=== PATIENT | female | born 1945 | race Caucasian/White ===

== ENCOUNTER 2022-09-11 02:18 | Inpatient (IN) | payer OTHER ==
[~2022-09-11] VITALS: Ht 172.7 cm; Wt 73.5 kg
--- NOTE | 2022-09-11 02:20 | NUR ---
KRISTEL from home for midnight Lt sided weakness with slurred speech,resolved then came back at 0130h. Patient is AAOX4, with facial drooping on left side. Able to make needs known. Answers questions. no drift noted on 4 extremities. Patient came with IV andrea on LEFT FA G18. Attached to monitor. Vitals checked.
--- NOTE | 2022-09-11 02:22 | NUR ---
called code stroke
--- NOTE | 2022-09-11 02:23 | NUR ---
BS OF 117mg/dl.
--- NOTE | 2022-09-11 02:25 | NUR ---
LEFT FOR CT VIA GURNEY UNDER ACLS PROTOCOL
--- NOTE | 2022-09-11 02:26 | NUR ---
UNABLE TO ATIVATE TELE MED REQUEST DUE TO TEMPORARY UNAVAILBLE INTERNET ACCESS. CALLED TELE MED AT [phone] MOYER
[2022-09-11] MEDS ORDERED: CT SWABBABLE VALVE TRANS SET 1 EA INFUS.SET MC ONE (02:42)
--- NOTE | 2022-09-11 02:53 | NUR ---
BACK FROM CT
--- NOTE | 2022-09-11 02:55 | NUR ---
Patient failed the swallowing eval. Dr Betancourt made aware
--- NOTE | 2022-09-11 02:55 | NUR ---
TELE NEURO ASSESSMENT IN PROCESS THROUGH RAPID ROOM DUE TO TWMPORARY LACK OF INTERNET ACCESS AT THE FACILITY. DR MOEYR IS ON VIDEO CHAT ASSESSING THE PATIENT ON MY PERSONAL CELL PHONE. DR HERRERA AT THE BED SIDE ASSISTING.
[2022-09-11 03:04] LABS: HEMATOCRIT 35 % (33-45); HEMOGLOBIN 11.4 g/dL (11.5-14.8); WHITE BLOOD COUNT (AUTO) 9.8 K/uL (4.3-11.0)
[2022-09-11 03:05] LABS: BASOPHILS % (AUTO) 0.2 % (0.0-2.0); EOSINOPHILS % (AUTO) 2.2 % (0.0-6.0); LYMPHOCYTES # (AUTO) 1.4 K/uL (0.8-4.8); LYMPHOCYTES % (AUTO) 14.3 % (20.0-44.0); MEAN CORPUSCULAR HGB CONC 33 g/dl (31.0-36.0); MEAN CORPUSCULAR VOLUME 100 fL (82-100); MONOCYTES # (AUTO) 0.7 K/uL (0.1-1.30); MONOCYTES % (AUTO) 7.6 % (2.0-12.0); NEUTROPHILS # (AUTO) 7.4 K/uL (1.8-8.9); NEUTROPHILS % (AUTO) 75.7 % (43.0-81.0); PLATELET COUNT (AUTO) 243 K/uL (150-450)
[2022-09-11 03:06] LABS: POTASSIUM 4.7 mmol/L (3.5-5.1); SODIUM SERUM 140 mmol/L (136-145)
[2022-09-11 03:07] LABS: BILIRUBIN,TOTAL 0.3 mg/dL (0.2-1.0); CALCIUM, SERUM 9.8 mg/dL (8.5-10.1); CARBON DIOXIDE 28 mmol/L (21-32); CHLORIDE 106 mmol/L (98-107); CREATININE 0.7 mg/dL (0.6-1.3); GLUCOSE 117 mg/dL (74-106); UREA NITROGEN, BLOOD 24 mg/dL (7-18)
[2022-09-11 03:08] LABS: ALANINE AMINOTRANSFERASE 24 U/L (12-78); ALBUMIN 3.6 g/dL (3.4-5.0); ALKALINE PHOSPHATASE 74 U/L (46-116); ASPARTATE AMINOTRANSFERASE 22 U/L (15-37); BILIRUBIN,DIRECT 0.1 mg/dL (0.0-0.2)
[2022-09-11 03:09] LABS: TOTAL PROTEIN, SERUM 7.8 g/dL (6.4-8.2)
--- NOTE | 2022-09-11 03:20 | NUR ---
Note undone in EDM - 09/11/22 at 0324 by COLBY KRISTEL from home for midnight Lt sided weakness with slurred speech,resolved then came back at 0130h. Patient is AAOX4, with facial drooping on left side. Able to make needs known. Answers questions. no drift noted on 4 extremities. Patient came with GRISELDA mendez on LEFT FA G18. Attached to monitor. Vitals checked.
[2022-09-11] MEDS ORDERED: ASPIRIN 300 MG/SUPP.RECT RC ONE ×2 (03:30→03:44)
--- NOTE | 2022-09-11 03:42 | NUR ---
URINE SPECIMEN SENT TO LAB
--- NOTE | 2022-09-11 04:04 | NUR ---
TO GIVE REPORT TO YOSSI MARTINEZ. WILL CALL AGAIN.
--- NOTE | 2022-09-11 04:14 | NUR ---
REPORT GIVEN TO RN NATALIE
[2022-09-11] MEDS ORDERED: MORPHINE SULFATE INJ 2 MG/ML DISP.SYRIN IV PRN (05:00)
[2022-09-11] MEDS ORDERED: hydrALAZINE HCL IV 20 MG VIAL IV PRN (05:00)
[2022-09-11] MEDS ORDERED: ACETAMINOPHEN 325 MG TABLET PO PRN (05:00)
[2022-09-11] MEDS ORDERED: ONDANSETRON HCL/PF 4 MG/2 ML VIAL IVP PRN (05:00)
--- NOTE | 2022-09-11 05:20 | NUR ---
0520 Admitted from ER 77 year old female via rney with Dx of CVA. Patient is awake and oriented x 4. Required max assist with transfer to bed. Admission care and skin assessment done. Still noted with mild left facial droop, mild left upper and lower extremities weakness. Speech slow but clear. On room air satting 98%. Noted with multiple open sores on bilateral lower extremities. Cleansed affected areas with NS and covered with dry dressing and wrapped in kerlix gauze. Incontinent of bowel and bladder. Requires max assist with ADLs. Vital signs taken and recorded. Stroke scale done and recorded. Needs attended. Call light placed within reach and instructed to call for assist.
--- NOTE | 2022-09-11 05:37 | NUR ---
TRANSFERRED PATIENT TO ROOM VIA ACLS PROTOCOL
[2022-09-11 06:00] VITALS: BP 148/69
[2022-09-11 07:12] LABS: THYROID STIMULATING HORMONE 13.642 uIU/mL (0.358-3.74)
[2022-09-11 08:00] VITALS: BP 143/68
--- NOTE | 2022-09-11 08:13 | NUR ---
ORTHOPEDIC SURGEON NOTE PATINT IN BED ALERT ORIENTED ON RA NO SOB NOTED AT THIS TIME, ON TELE MONITOR SR HR 62 WITH LT SIDE WEAKNESS ON NPO AT TIS TIME NO SOB NOTED, RT FA HL INTACT AND FLUSHED WELL , BED IN LOWEST AND LOCKED POSITION WILL MONITOR
--- NOTE | 2022-09-11 08:45 | NUR ---
WOUND CARE CONSULT: PT PRESENTS WITH BILATERAL LOWER LEG AND FOOT WOUNDS, PRESENT ON ADMISSION. DR MATHIS CALLED FOR DPM CONSULT. DISCUSSED SKIN PROTECTION WITH NURSING STAFF. MD IN AGREEMENT WITH PLAN OF CARE. PT IS INCONTINENT.
[2022-09-11] MEDS: HEPARIN SODIUM, PORCINE 5000 UNITS/1 ML VIAL SQ SCH ×2 (08:47→20:13)
[2022-09-11] MEDS ORDERED: Z GUARD REMEDY 4 OZ OINT TP PRN (09:00)
[2022-09-11] MEDS ORDERED: ATOR10TA PO (09:46)
[2022-09-11] MEDS ORDERED: LEVO100T9 PO (09:46)
--- NOTE | 2022-09-11 10:00 | NUR ---
teletype operator note bibiana finnegan applued for urine incontinence of urine , stroke teaching provided abd explained s\s of stoke ,risk factors and educate about meds and fu with doctor and taking her medication and how activate emergency for stoke all of this understands, call light within reach will monitor
[2022-09-11] MEDS: ASPIRIN EC 81 MG TABLET.DR PO SCH (10:06)
[2022-09-11] MEDS: Z GUARD REMEDY 4 OZ OINT TP SCH (10:07)
--- NOTE | 2022-09-11 10:08 | NUR ---
telecommunication systems designer note seen by wound care nurse and pt ,still with weakens lt side
--- NOTE | 2022-09-11 10:13 | NUR ---
telecom specialist note passed swallow eval at bedside awaiting foe st eval will f\u
[2022-09-11] MEDS ORDERED: MULT-1168 PO (10:15)
--- NOTE | 2022-09-11 11:08 | NUR ---
telephone service adviser note social service agency director at [facility] depression screening done Addendum: 09/11/22 at 1122 by PRINCESS WELLER RN DVT PUMPS APPLIED TO BOTH LEGS
--- NOTE | 2022-09-11 11:42 | NUR ---
ENVIRONMENTAL INTERN NOTE ST WILL COME LATTER ON, SPOKE WITH MARIANO PT DEPARTMENT
--- NOTE | 2022-09-11 11:56 | NUR ---
SCROLL SAW OPERATOR NOTE REPORT GIVEN TO RON
[2022-09-11 12:00] VITALS: BP 139/69
--- NOTE | 2022-09-11 12:00 | NUR ---
RN NOTE RECEIVED REPORT FROM PRINCESS SY FOR [facility]
--- NOTE | 2022-09-11 13:32 | NUR ---
rn note pt left for MRI
--- NOTE | 2022-09-11 13:53 | NUR ---
rn note pt returned from MRI
--- NOTE | 2022-09-11 14:11 | NUR ---
SS Consult: SS consult requested for TIA. The pt. is a 77-year-old White female who was admitted to [facility] due to possibleTIA. SW met with pt. bedside. The pt. was alert & oriented x 4 and makes poor eye contact. The pt. appears well-groomed and is very drowsy/tired. Pt. denies SI/HI and denies hallucinations. The pt. has euthymic mood & affect. Pt. stated that he lives at home [[id number] [facility] [address]] with her , Morgan Patel tel: [phone] and gave SW verbal consent to call her to gather collateral information. SW completed post stroke depression scale with pt. and pt. score was 2 and no psych consult needed. Pt.s nurse was at bedside and was made aware. RODERICK called the pt.s , Morgan Patel tel: [phone] to gather collateral information. Per pt.s , the pt. has Hx. of Dementia and aphasia and is incontinent. Per , the pt. has no children and no caregiver at this time. states he takes care of her. SW also provided empowerment after stroke educational material and pt. accepted it. Pt. denies drug or alcohol use. Pt. denies any Hx. of mental illness or medication. Pt. stated that her support system includes his and family. Per , pt. receives SSI. DC Plan: Pt.s Morgan Patel tel: [phone] stated that when pt. is ready for discharge, he would like for pt. return to home [[id number] [facility] [address] SW encouraged to hire a caregiver as he is elderly as well and to ensure pt.s properly taken care. SW provided stroke empowerment resources at bedside as well as Senior resources and pamphlets for caregiving agencies & memory care facility: ANGELES Hernandez caregiving agency tel:[phone] [facility] Homecare tel: [phone] [facility] care tel: [phone] [facility] tel: [phone] [facility] tel [phone] ABUSE PREVENTION: ELDER ABUSE HOTLINE (12/01) ADULT PROTECTIVE SERVICES HOTLINE LONG-TERM CARE [facility] Region AREA ON AGING (HOTLINE) ADULT DAY HEALTH CARE CARE CENTERS: Private pay or Medi-kevin funded adult day care [place] [facility] , [facility] Services , [facility] Adult [facility] Center , [facility] Adult Day Health Care , [facility] Adult Day Health Care , [facility] Adult [facility] Center , [facility] , [facility] , [place] ALZHEIMERS DISEASE/DEMENTIA: Alzheimers Association Helpline [facility] www.alz.org/[facility] Department of Aging www.lacity.org Family Caregiver [place] www.caregiver.org [place] Caregiver Resources Center/Family Support www.[facility].org CANCER RESOURCES: [place] Cancer Society www.cancer.org Cancer Support Community www.CancerSupportVvsb.org: CancerCare www.cancercare.org [facility] Cancer Support Center www.spark.org COMMUNITY HEALTH ASSOCIATIONS: AARP www.aarp.org ALS Association (ask for Lurdes) www.als.org Indonesian Diabetes Association www.diabetes.org Indonesian Heart Association www.heart.org Indonesian Lung Association www.lungusa.org Indonesian Parkinson Disease Association www.apdaparkinson.org Indonesian Mcgill , www.redcross.org Arthritis Foundation www.arthritis.org Crohns & Colitis Foundation of Indonesian www.ccfa.org/chapters/losangeles National Multiple Sclerosis Society www.nationalmssociety.org Myasthenia Gravis Foundation www.myasthenia-ca.org National Stroke Association www.stroke.org CONSERVATORSHIP & GUARDIANSHIP: AARP Fifi Ramirez Legal Services Center for Health Care Rights [facility] Information and Referral Fiberglass Container Winding Operator [place] [facility]: [facility] Referral Service [facility] Legal Services Office of the Public Guardian [place] EYESIGHT DISORDER RESOURCES: Indonesian Macular Degeneration Foundation [facility] www.brapromedica toledo hospitalinstitute.org GRIEF AND BEREAVEMENT RESOURCES: The Gathering Place , [facility] THE GRAFF Connection , [facility] Bereavement Center , [place] HEARING DISORDER RESOURCES: [place] Telephone Access Program Deaf and Disabled Telecommunications Program www.ddtp.cpuc.ca.gov HearRx Hearing Centers ([place]) Better Hearing Systems , [place] GLAD ([facility] Agency on Deafness) V/ TTY; Microarray Specialist , [facility] Hearing [place] [facility] -low income hearing aid assistance www.starkeyhearingfoundation.org [place] [facility] Armando HELP AT HOME CAREGIVER SUPPORT: In Home Support Services (Must have Medi-Kevin to be eligible) *Ask for a list of agencies that provide services to assist with care in the home. Local Senior Centers also have listings of care providers. HOME SAFETY MODIFICATIONS AND EQUIPMENT: Senior centers have additional referrals. [place] Insight Guru and Aryaka Networks Dept. Handyworker Program (low income) or Visit http://hcidla.[facility].org/ouf-qaecju-ea for more information National Seating and Mobility and/or ; Forever Active www.foreveractivemed.Prehash Ltd Stay Home Safe www.Stayhomesafe.com LIFE ALERT RESPONSE SYSTEM: NeuroNascent Lifeline Services [phone] www. LifeKeyMe Life Alert [phone] www.lifeHearsay.itrt.Prehash Ltd Life Station [phone] www.ZAPRation.Prehash Ltd Safe Return [phone] www.alz.or/safereturn Cell Phones for Seniors www.globalscholar.com MEALS AND FOOD PROGRAMS: Dora Meals on Wheels [phone] [place] Meals on Wheels [phone] [facility] [phone] [place] to the Homebound [phone] [place] to the Homebound [phone] Health System to the Homebound [phone] [facility] to the Homebound [phone] Rey Glass [phone] Donal Vikash [place] [phone] ONE Generation [phone] [facility] [phone] [facility] [phone] Meals on Wheels [phone] For all ages: $6.85/ meal w side. Delivered M-F from 10 am-1pm. Application and payment is done over the phone. Frozen meals available for weekends. Emergency Food [facility] [phone] [facility] Assistant Field Hockey Coach [phone] [facility] [phone] Cherie Trinidad Outreach- Brown bag lunches [phone] [facility] [phone] MEAL/GROCERY DELIVERY PROGRAMS: Ayde [facility] Gourmet Meals [phone]- [facility] [phone]- [facility] Magic Kitchen [phone] Moms Meals [phone] (ask Harris for Discount Select grocery stores may provide delivery. MEDICAL INSURANCE SUPPORT SERVICES: Center for Health Care Rights [phone] Health Insurance Counseling/Advocacy Programs (HICAP)-Must have Medicare. Offers counseling for Medi-Kevin eligibility [phone] Department of Public Assistant Field Hockey Coach [phone] www.[facility].ca.gov Medicare [phone] www.socialsecurity.org Social Security [phone] SENIOR ACTIVITY PROGRAMS: *Contact a local senior center, adult school, recreation facility or community college for education, fitness, recreation, and social programs. Aquatic Therapy and Adapted Exercise programs through [facility] [phone] Encore at [facility] [phone] www.[facility]/encore U- Senior Friends [phone] [place] Senior Programs [phone] www.oasisnet.org Suddenly 65 www.vllbkoqu22.com SENIOR CENTERS: [facility] [phone] [facility] [phone] [facility] [phone] [facility] Hospital[facility] [phone] [facility] [phone] [facility] [phone] [facility] [phone] [facility] [phone] Shelley Baltazar [facility] [phone] [facility] [phone] [facility] [phone] The [facility] [phone] [facility] [phone] TRANSPORTATION: Local [facility] may have applications for transportation programs and additional resources. ACCESS Services [phone] Transportation for seniors and disabled persons 7 days a week requiring 254 hr. advance reservation. Must apply and register for program jimmie eligible. UIEvolution [phone] or [phone] Transportation for seniors and persons with ADA card/metro disabled card in the [facility]. M-F only. Must register for services. ONE GENERATION [phone] Serves 65 years + in conjunction with I & Combinee program. Must be registered with both programs. A to B Transport [phone] Provides wheelchair/gurney van service. Adult Medical Transport [phone] Accepts [facility] with prior authorization. Care Van [phone] Provides wheelchair Transport. [facility] Wide Transportation [phone] Provides gurney service [facility]le [facility] [phone] Gurney Transport. [facility] Town Transportation [phone] wheelchair & gurney transport [facility] Transportation [phone] wheelchair & gurney transport [place] Non-Emergency Transport [phone] wheelchair & gurney transport [facility] Living [place] [phone] Short Term Transportation primarily for adults with disabilities on social security income. Nominal fee may apply and a reservation is required. [place] Sub Systems [phone] or [phone] LP Amina [phone] [place] [address] Services -[phone] For additional programs & services VETERANS RESOURCES: Submissions for Aid and Attendance should be done directly to Federal VA office locatd at : [address] [facility] [phone] National Caregiver Support Line [phone] Kevin [facility] Veterans Services Field Office [phone] [place] Department of Affairs [phone] Pension Information [phone]
[2022-09-11 16:00] VITALS: BP 133/67
--- NOTE | 2022-09-11 16:24 | NUR ---
RN NOTE ROUNDS MADE WITH RR BARIATRIC NURSE. PREVIOUS 1200 NIHSS SCORE 5. DID ANOTHER NIHSS STROKE SCALE INCREASED TO NIHSS 10. INITIATED CODE STROKE. LAST KNOWN WELL TIME 09/11 0130 AM ED ARRIVAL 09/10 CODE STROKE ACTIVATED 1624 TELE NEUROLOGY ACTIVIATED [address] RESULTED [address] SCAN NIHSS SCORE 10 BLOOD SUGAR 97 LAB EXTRACTION 09/11 1632 RR BARIATRIC NURSE PRESENT AT BEDSIDE. ICU EXTRACTIONS TECHNICIAN AT BEDSIDE NOTIFIED, EXTRACTIONS TECHNICIAN NOTITIFED, NURSING LMSW TELE NEUROLOGIST RECOMMENDED PT BE ON PLAVIX Addendum: 09/11/22 at 1958 by RON PEREZ RN PER TELE NEUROLOGIST NIHSS SCORE 4
[2022-09-11 16:43] LABS: BASOPHILS % (AUTO) 0.3 % (0.0-2.0); EOSINOPHILS % (AUTO) 2.2 % (0.0-6.0); HEMATOCRIT 34 % (33-45); LYMPHOCYTES # (AUTO) 1.2 K/uL (0.8-4.8); LYMPHOCYTES % (AUTO) 15.6 % (20.0-44.0); MEAN CORPUSCULAR HGB CONC 33 g/dl (31.0-36.0); MEAN CORPUSCULAR VOLUME 100 fL (82-100); MONOCYTES # (AUTO) 0.6 K/uL (0.1-1.30); MONOCYTES % (AUTO) 8.5 % (2.0-12.0); NEUTROPHILS # (AUTO) 5.5 K/uL (1.8-8.9); NEUTROPHILS % (AUTO) 73.4 % (43.0-81.0); PLATELET COUNT (AUTO) 221 K/uL (150-450); RED BLOOD CELL COUNT(AUTO) 3.36 MIL/uL (4.0-5.2); WHITE BLOOD COUNT (AUTO) 7.5 K/uL (4.3-11.0)
[2022-09-11 16:58] LABS: CALCIUM, SERUM 8.9 mg/dL (8.5-10.1); CREATININE 0.6 mg/dL (0.6-1.3); POTASSIUM 4.3 mmol/L (3.5-5.1)
[2022-09-11] MEDS ORDERED: CLOPIDOGREL BISULFATE 300 MG TABLET PO ONE (17:00)
[2022-09-11 17:13] LABS: ALBUMIN 3.3 g/dL (3.4-5.0); BILIRUBIN,TOTAL 0.5 mg/dL (0.2-1.0); TOTAL PROTEIN, SERUM 7.3 g/dL (6.4-8.2)
[2022-09-11] MEDS ORDERED: BLOOD SUGAR DIAGNOSTIC 1 EACH STRIP IN SCH ×3 (17:30→18:00)
[2022-09-11 17:36] LABS: THYROID STIMULATING HORMONE 9.158 uIU/mL (0.358-3.74)
[2022-09-11 17:51] VITALS: BP 133/67
[2022-09-11] MEDS: BLOOD SUGAR DIAGNOSTIC 1 EACH STRIP IN SCH ×2 (18:07→22:17)
--- NOTE | 2022-09-11 18:15 | NUR ---
RN NOTE NOTIFIED DR. JAMA THAT PT HAS 1 TIME DOSE OF PLAVIX TO GIVE NOW. AND PT IS ON HEPARIN ALREADY AND IF OKAY TO HOLD GIVE. RELAYED HGB 11.0, HCT 34, PLATELET 221. SAID OKAY TO GIVE PLAVIX.ORDER NOTED AND CARRIED OUT
--- NOTE | 2022-09-11 19:40 | NUR ---
RN CLOSING NOTE PT ALERT AND ORIENTED X3 PT IS ON TELE MONITOR. HIGH FOWLERS POSITION. PT ON ROOM AIR. . PT HAS R FOREARM AND LEFT 18 GAUGE. IV INTACT, PATENT AND FLUSHING WELL.PT ON ASPIRATION PRECAUTIONS. ALL SAFETY MEASURES IN PLACE. CALL LIGHT WITHIN REACH, BED LOCKED IN LOWEST POSITION. SIDE RAILS UP X2. BED ALARM ON.
[2022-09-11 20:00] VITALS: BP 126/65
[2022-09-11] MEDS: ATORVASTATIN 40 MG TABLET PO SCH (22:04)
[2022-09-11] MEDS ORDERED: MINERAL OIL/PETROLATUM,WHITE 120 GM JAR TP PRN (23:00)
[2022-09-12] VITALS: BP 130/65
[2022-09-12 04:00] VITALS: BP 141/60
[2022-09-12 07:09] LABS: BASOPHILS % (AUTO) 0.3 % (0.0-2.0); EOSINOPHILS % (AUTO) 2.2 % (0.0-6.0); HEMATOCRIT 34 % (33-45); HEMOGLOBIN 11.2 g/dL (11.5-14.8); LYMPHOCYTES # (AUTO) 1.2 K/uL (0.8-4.8); LYMPHOCYTES % (AUTO) 14.9 % (20.0-44.0); MEAN CORPUSCULAR HGB CONC 33 g/dl (31.0-36.0); MEAN CORPUSCULAR VOLUME 99 fL (82-100); MONOCYTES # (AUTO) 0.6 K/uL (0.1-1.30); MONOCYTES % (AUTO) 7.9 % (2.0-12.0); NEUTROPHILS # (AUTO) 5.9 K/uL (1.8-8.9); NEUTROPHILS % (AUTO) 74.7 % (43.0-81.0); PLATELET COUNT (AUTO) 220 K/uL (150-450); RED BLOOD CELL COUNT(AUTO) 3.41 MIL/uL (4.0-5.2); WHITE BLOOD COUNT (AUTO) 7.9 K/uL (4.3-11.0)
[2022-09-12 07:15] LABS: ALBUMIN 3.2 g/dL (3.4-5.0); BILIRUBIN,TOTAL 0.6 mg/dL (0.2-1.0); CALCIUM, SERUM 8.9 mg/dL (8.5-10.1); CREATININE 0.6 mg/dL (0.6-1.3); MAGNESIUM 2.3 mg/dL (1.8-2.4); PHOSPHORUS 3.6 mg/dL (2.5-4.9); POTASSIUM 3.5 mmol/L (3.5-5.1); TOTAL PROTEIN, SERUM 7.2 g/dL (6.4-8.2)
--- NOTE | 2022-09-12 07:30 | NUR ---
IUSS ACOUSTIC ANALYST AM NOTE PT IN BED, AAO X 3, ABLE TO EXPRESS SELF AND MAKE NEEDS KNOWN. ON ROOM AIR O2 SAT 97%, RESPIRATION UNLABORED. SR HR 75 ON MONITOR. DENIES PAIN OR CHEST DISCOMFORT. WITH RFA 18G AND LFA 20 G, BOTH FLUSHES WELL, BOTH SITE CLEAR. PUREED DIET WITH HONEY THICKENED LIQUID. FOR SWALLOW EVAL. SEE NURSING FLOWSHEET FOR SKIN ISSUES. ASPIRATION PRECAUTIONS. HOB UP X 3O DEG AT ALL TIMES. PUREWICK IN PLACE. WILL PERFORM PRESCRIBED WOUND TREATMENT IN A WHILE, TURN AND REPOSITION Q 2 HOURS. ALL SAFETY MEASURES IN PLACE. CALL LIGHT WITHIN REACH, BED LOCKED IN LOWEST POSITION. SIDE RAILS UP X2. BED ALARM ON. DISCUSSED POC, NEEDS FURTHER TEACHINGS. WILL CONT TO MONITOR NIHSS SCORE OF 3.
[2022-09-12 08:00] VITALS: BP 143/67
[2022-09-12] MEDS: BLOOD SUGAR DIAGNOSTIC 1 EACH STRIP IN SCH ×4 (08:22→22:00)
[2022-09-12] MEDS: HEPARIN SODIUM, PORCINE 5000 UNITS/1 ML VIAL SQ SCH ×2 (09:18→21:59)
[2022-09-12] MEDS: GENTAMICIN 0.1% OINT 15 GM TUBE TP SCH ×2 (09:18→16:40)
[2022-09-12] MEDS: ASPIRIN EC 81 MG TABLET.DR PO SCH (09:18)
[2022-09-12] MEDS: Z GUARD REMEDY 4 OZ OINT TP SCH (09:19)
--- NOTE | 2022-09-12 09:30 | NUR ---
RN NOTES DUE MEDS GIVEN
--- NOTE | 2022-09-12 09:50 | NUR ---
RN NOTES DR. JERRY MCNALLY AT BEDSIDE EARLIER. ASSESSED PATIENT. NO NEW ORDERS. SWALLOW EVAL DONE BY SANDY, RECOMMENDED VIDEO SWALLOW. NOTIFIED MD.
[2022-09-12] MEDS: CLOPIDOGREL BISULFATE 75 MG TABLET PO SCH (11:32)
[2022-09-12 12:00] VITALS: BP 145/62
--- NOTE | 2022-09-12 12:45 | NUR ---
RN NOTES DR. CONWAY AT BEDSIDE FOR BUBBLE TEST WITH ULTRASOUND
--- NOTE | 2022-09-12 13:00 | NUR ---
RN NOTES PATIENT SEEN BY PT AND OT. PT IS MAXIMUM ASSIST FOR MOBILITY, UNABLE TO TRANSFER. UNABLE TO AMBULATE. HIGH RISK FOR FALL
--- NOTE | 2022-09-12 13:45 | NUR ---
RN NOTES PATIENT AT BEDSIDE. SPOKE WITH KD CASE MANAGEMENT.
[2022-09-12 16:00] VITALS: BP 114/79
--- NOTE | 2022-09-12 18:39 | NUR ---
REDEYE GUNNER CLOSING NOTE PT IN BED, AAO X 3, ABLE TO EXPRESS SELF AND MAKE NEEDS KNOWN. ON ROOM AIR O2 SAT 97%, RESPIRATION UNLABORED. SR HR 78 WITH OCCASIONAL PVC ON MONITOR. DENIES PAIN OR CHEST DISCOMFORT. WITH RFA 18G AND LFA 18 G, BOTH FLUSHES WELL, BOTH SITE CLEAR. ASPIRATION PRECAUTIONS. HOB UP X 3O DEG AT ALL TIMES. PUREWICK IN PLACE. TURNED AND REPOSITIONED Q [address] ALL SAFETY MEASURES IN PLACE. CALL LIGHT WITHIN REACH, BED LOCKED IN LOWEST POSITION. SIDE RAILS UP X2. BED ALARM ON. WILL ENDORSE TO NEXT SHIFT FOR ERWIN. NIHSS SCORE OF 3.
--- NOTE | 2022-09-12 19:40 | NUR ---
PANTS BUSHELER OPENING NOTES RECEIVED PATIENT IN BED AWAKE, ALERT AND ORIENTED. AXO X 3-4. ABLE TO EXPRESS SELF AND MAKE NEEDS KNOWN. ON ROOM AIR, BREATHING EVEN AND UNLABORED, SATURATING @ 97%. 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 DENIES PAIN OR CHEST DISCOMFORT AT THIS TIME. IV ACCESS RFA #18G AND LFA #18G IN SALINE LOCK AND FLUSHING WELL. ASPIRATION PRECAUTIONS. HOB UP X 3O DEG AT ALL TIMES. PUREWICK IN PLACE DRAINING GET COLORED URINE. WILL MAINTAIN SAFETY MEASURES WITH BED IN LOWEST AND LOCKED POSITION. CALL LIGHT WITHIN REACH. SIDE RAILS UP X2. BED ALARM ON. WILL CONTINUE TO MONITOR THE PATIENT AND WILL CARRY OUT ACTIVE MD ORDERS.
[2022-09-12 20:58] VITALS: BP 125/72
[2022-09-12] MEDS: ATORVASTATIN 40 MG TABLET PO SCH (22:01)
[2022-09-13] VITALS: BP 139/69
[2022-09-13] MEDS ORDERED: IV NS 0.9% 1,000 ML IV SCH (01:30)
--- NOTE | 2022-09-13 02:30 | NUR ---
RN NOTES- NS PATIENT NOT EATING WELL AND RISK FOR ASPIRATION. INFORMED DR. SAHU AND ORDERED NS @ 70 MLS/HR. WILL CONTINUE TO MONITOR THE PATIENT.
--- NOTE | 2022-09-13 02:30 | NUR ---
RN NOTES- ACCUCHECK CANCELLED PATIENT VERBALIZED THAT SHE IS NOT DIABETIC AND REQUESTED TO CANCEL ACCUCHECK. INFORMED DR. SAHU AND AGREED TO CANCEL. ORDER CARRIED OUT.
[2022-09-13 04:00] VITALS: BP 135/84
--- NOTE | 2022-09-13 06:10 | NUR ---
YOSSI NBOTES- WOUND CARE AND DRESSING CHANGE DONE WOUND CARE AND DRESSING CHANGE DONE. CLEANSED BY NS AND APPLIED GENTAMYCIN TO THE WOUND AREA.
[2022-09-13 07:14] LABS: BASOPHILS % (AUTO) 0.3 % (0.0-2.0); EOSINOPHILS % (AUTO) 0.3 % (0.0-6.0); HEMATOCRIT 37 % (33-45); HEMOGLOBIN 12.3 g/dL (11.5-14.8); LYMPHOCYTES % (AUTO) 10.2 % (20.0-44.0); MEAN CORPUSCULAR HGB CONC 33 g/dl (31.0-36.0); MEAN CORPUSCULAR VOLUME 99 fL (82-100); MONOCYTES # (AUTO) 0.8 K/uL (0.1-1.30); NEUTROPHILS # (AUTO) 8.3 K/uL (1.8-8.9); NEUTROPHILS % (AUTO) 81.2 % (43.0-81.0); PLATELET COUNT (AUTO) 259 K/uL (150-450); RED BLOOD CELL COUNT(AUTO) 3.76 MIL/uL (4.0-5.2); WHITE BLOOD COUNT (AUTO) 10.2 K/uL (4.3-11.0)
--- NOTE | 2022-09-13 07:30 | NUR ---
PLANT HR MANAGER CLOSING NOTES PATIENT CURRENTLY SLEEPING. AWAKENS IN VERBAL STIMULI. A/O X 4. NO S/S PAIN NOTED AT THIS TIME. ON RA, BREATHING EVEN AND UNLABORED, NO DISTRESS OR SOB NOTED. HOB ELEVATED 30 DEGREES. IV ACCESS ON RFA #18G RUNNING NS @ 70ML/HR AND LFA #20G ON SALINE LOCK, FLUSHING WELL. PATIENT ON PUREWICK DRAINED GET COLORED URINE 500CC. SAFETY MEASURES MAINTAINED THROUGHOUT THE SHIFT. WILL ENDORSE TO THE NEXT SHIFT.
[2022-09-13 08:00] VITALS: BP 152/58
--- NOTE | 2022-09-13 08:03 | NUR ---
JOB SETTER HONING OPENING NOTES RECEIVED PATIENT ON BED AWAKE, ALERT AND ORIENTED. AXO X 3-4. ABLE TO EXPRESS SELF AND MAKE NEEDS KNOWN. ON ROOM AIR, BREATHING EVEN AND UNLABORED, SATURATING @ 97%. 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 DENIES PAIN OR CHEST DISCOMFORT AT THIS TIME. IV ACCESS RFA #18G AND LFA #18G IN SALINE LOCK AND FLUSHING WELL. ASPIRATION PRECAUTIONS. HOB UP X 3O DEG AT ALL TIMES. PUREWICK IN PLACE DRAINING GET COLORED URINE. WILL MAINTAIN SAFETY MEASURES WITH BED IN LOWEST AND LOCKED POSITION. CALL LIGHT WITHIN REACH. SIDE RAILS UP X2. BED ALARM ON. WILL CONTINUE TO MONITOR PATIENT.
[2022-09-13 08:09] LABS: CALCIUM, SERUM 9.4 mg/dL (8.5-10.1); CREATININE 0.7 mg/dL (0.6-1.3); MAGNESIUM 2.4 mg/dL (1.8-2.4); PHOSPHORUS 3.4 mg/dL (2.5-4.9); POTASSIUM 3.5 mmol/L (3.5-5.1)
[2022-09-13] MEDS: CLOPIDOGREL BISULFATE 75 MG TABLET PO SCH (09:08)
[2022-09-13] MEDS: ASPIRIN 81 MG TAB.CHEW PO SCH (09:08)
[2022-09-13] MEDS: GENTAMICIN 0.1% OINT 15 GM TUBE TP SCH ×2 (09:09→16:36)
[2022-09-13] MEDS: HEPARIN SODIUM, PORCINE 5000 UNITS/1 ML VIAL SQ SCH ×2 (09:12→21:41)
[2022-09-13] MEDS: Z GUARD REMEDY 4 OZ OINT TP SCH (09:13)
[2022-09-13 12:00] VITALS: BP 147/70
[2022-09-13] MEDS: IV NS 0.9% 1,000 ML IV PRN (13:52)
[2022-09-13 16:00] VITALS: BP 135/84
--- NOTE | 2022-09-13 18:55 | NUR ---
MANNEQUIN MOLDER CLOSING NOTES PATIENT AWAKEN IN VERBAL STIMULI. A/O X 4. ON RA, BREATHING EVEN AND UNLABORED, NO DISTRESS OR SOB NOTED. HOB ELEVATED 30 DEGREES. IV ACCESS ON RFA #18G RUNNING NS @ 70ML/HR AND LFA #20G ON SALINE LOCK, FLUSHING WELL. PATIENT ON PUREWICK DRAINED GET COLORED URINE 200CC. KEPT AND DRY AT ALL TIMES. TURNED AND REPOSITIONED FREQUENTLY TOLERATED. ASPIRATION PRECAUTIONS OBSERVED. SAFETY MEASURES MAINTAINED THROUGHOUT THE SHIFT. WILL ENDORSE TO THE NEXT SHIFT.
--- NOTE | 2022-09-13 19:50 | NUR ---
RN Opening Notes Received pt in bed, laying with eyes open. AOx4, with delayed speech. On RA and tolerating well. No SOB noted. No s/sx of respiratory distress noted. Tele monitor detects SR with rate of 70. IV access LFA#20G and RFA #18G running NS @ 70 mL/hr. Safety precautions in place: bed in lowest, locked position, siderails upX2, HOB elevated, and brakes on. Table and call light within reach. All needs met at this time.
[2022-09-13 20:00] VITALS: BP 143/64
[2022-09-13] MEDS: ATORVASTATIN 40 MG TABLET PO SCH (21:39)
[2022-09-14] VITALS: BP 142/72
[2022-09-14 04:00] VITALS: BP 140/77
[2022-09-14] MEDS: IV NS 0.9% 1,000 ML IV PRN (05:35)
--- NOTE | 2022-09-14 06:38 | NUR ---
RN Closing Notes Pt in bed, asleep, awakens to verbal stimuli. AOx3, with delayed speech. On RA and tolerating well. No SOB noted. No s/sx of respiratory distress noted. Tele monitor detects SR with rate of 70. IV access LFA#20G and RFA #18G running NS @ 70 mL/hr. All orders carried out. All needs met. Pt kept clean and dry. Safety precautions in place: bed in lowest, locked position, siderails upX2, HOB elevated, and brakes on. Table and call light within reach. Will endorse to oncoming shift for ERWIN.
--- NOTE | 2022-09-14 07:00 | NUR ---
MIXER OPERATOR RAW SALT OPENING NOTES RECEIVED PATIENT ON BED ASLEEP. ON ROOM AIR, BREATHING EVEN AND UNLABORED, SATURATING @ 97%. PATIENT IS ON TELE MONITOR, SR HR 57. DENIES PAIN OR CHEST DISCOMFORT AT THIS TIME. IV ACCESS RFA #18G AND LFA #18G IN SALINE LOCK AND FLUSHING WELL. RUNNING NS AT 70 ML/HR.ASPIRATION PRECAUTIONS. HOB UP X 3O DEG AT ALL TIMES. PUREWICK IN PLACE DRAINING GET COLORED URINE. WILL MAINTAIN SAFETY MEASURES WITH BED IN LOWEST AND LOCKED POSITION. CALL LIGHT WITHIN REACH. SIDE RAILS UP X2. BED ALARM ON. WILL CONTINUE TO MONITOR PATIENT.
[2022-09-14 08:00] VITALS: BP 154/76
[2022-09-14] MEDS: CLOPIDOGREL BISULFATE 75 MG TABLET PO SCH (08:32)
[2022-09-14] MEDS: ASPIRIN 81 MG TAB.CHEW PO SCH (08:32)
[2022-09-14] MEDS: GENTAMICIN 0.1% OINT 15 GM TUBE TP SCH ×2 (08:33→16:51)
[2022-09-14] MEDS: Z GUARD REMEDY 4 OZ OINT TP SCH (08:34)
[2022-09-14] MEDS: ENOXAPARIN SODIUM 40 MG/0.4 ML DISP.SYRIN SQ SCH (08:39)
[2022-09-14] MEDS ORDERED: CLOP75TA15 PO (11:31)
[2022-09-14] MEDS ORDERED: ASPI-1169 PO (11:31)
[2022-09-14] MEDS ORDERED: ATOR40TA PO (11:31)
[2022-09-14] MEDS ORDERED: LISI-768 PO (11:31)
[2022-09-14 12:00] VITALS: BP 145/51
--- NOTE | 2022-09-14 12:41 | NUR ---
RN NOTES: PT REFUSED BREAKFAST AND LUNCH WHEN TRIED TO GIVE PO MEDS OR FOOD SHE KEEP ON HER MOUTH AND START COUGHING NOTIFIED DR SANTIAGO WITH ORDER TO HOLD DISCHARGE AND SPEECH EVAL
[2022-09-14 16:00] VITALS: BP 154/60
--- NOTE | 2022-09-14 19:45 | NUR ---
RN OPENING NOTE RECEIVED PATIENT IN BED; AWAKE, ALERT AND ORIENTED X 3-4. ON ROOM AIR; TOLERATING WELL. BREATHING EVEN AND NONLABORED. DENIES ANY PAIN OR DISCOMFORT AT THIS TIME. ON TELE MONITORING WHICH READS SR HR-75 BPM. WITH IV ACCESS ON RFA 18g AND LFA 18g; PATENT, INTACT AND SALINE LOCKED. ASPIRATION AND SAFETY PRECAUTIONS IMPLEMENTED: HEAD OF BED ELEVATED AT ALL TIMES, CALL LIGHT AND TABLE WITHIN REACH, SIDE RAILS UP X 3, BED IN LOWEST LOCKED POSITION. WILL CONTINUE PLAN OF CARE.
--- NOTE | 2022-09-14 19:45 | NUR ---
FIRE LOSS PREVENTION ENGINEER Closing Notes Pt in bed, awake. AOx3, with delayed speech. On RA and tolerating well. No SOB noted. No s/sx of respiratory distress noted. Tele monitor detects SR . IV access LFA#20G and RFA #18G . All orders carried out. All needs met. Pt kept clean and dry. Safety precautions in place:PureWick in place drained 700 ml urine bed in lowest, locked position, side rails upX2, HOB elevated, and brakes on. Table and call light within reach. endorsed to shift supervisor film processing RN for ERWIN.
[2022-09-14 20:00] VITALS: BP 138/67
[2022-09-14] MEDS: ATORVASTATIN 40 MG TABLET PO SCH (22:55)
[2022-09-15] VITALS: BP 146/64
[2022-09-15 04:00] VITALS: BP 138/89
--- NOTE | 2022-09-15 07:10 | NUR ---
RN OPENING NOTE RECEIVED PATIENT ON BED; AWAKE, ALERT AND ORIENTED X 3-4. ON ROOM AIR; TOLERATING WELL. BREATHING EVEN AND NONLABORED. DENIES ANY PAIN OR DISCOMFORT AT THIS TIME. ON TELE MONITORING WHICH READS SR HR-76 BPM. WITH IV ACCESS ON RFA 18g AND LFA 18g; PATENT, INTACT AND SALINE LOCKED. ASPIRATION AND SAFETY PRECAUTIONS IMPLEMENTED: HEAD OF BED ELEVATED AT ALL TIMES, CALL LIGHT AND TABLE WITHIN REACH, SIDE RAILS UP X 2, BED IN LOWEST LOCKED POSITION. WILL CONTINUE PLAN OF CARE.
--- NOTE | 2022-09-15 07:14 | NUR ---
RN CLOSING NOTE PATIENT IN BED; AWAKE, ALERT AND ORIENTED X 3-4. ON ROOM AIR; TOLERATING WELL. BREATHING EVEN AND NONLABORED. ON TELE MONITORING WHICH READS SR HR-75 BPM. DENIES ANY PAIN OR CHEST DISCOMFORT AT THIS TIME. WITH IV ACCESS ON RFA 18g AND LFA 18g; PATENT, INTACT AND SALINE. ASPIRATION AND SAFETY PRECAUTIONS MAINTAINED: HEAD OF BED ELEVATED AT ALL TIMES, CALL LIGHT AND TABLE WITHIN REACH, SIDE RAILS UP X 3, BED IN LOWEST LOCKED POSITION. ENDORSED TO MORNING SHIFT FOR ERWIN.
[2022-09-15 08:00] VITALS: BP 147/90
[2022-09-15] MEDS: CLOPIDOGREL BISULFATE 75 MG TABLET PO SCH (08:21)
[2022-09-15] MEDS: ASPIRIN 81 MG TAB.CHEW PO SCH (08:21)
[2022-09-15] MEDS: ENOXAPARIN SODIUM 40 MG/0.4 ML DISP.SYRIN SQ SCH (08:22)
[2022-09-15] MEDS: GENTAMICIN 0.1% OINT 15 GM TUBE TP SCH ×2 (08:38→17:00)
[2022-09-15] MEDS: Z GUARD REMEDY 4 OZ OINT TP SCH (08:39)
[2022-09-15] MEDS ORDERED: IV D5/0.45 NACL 1,000 ML IV ONE ×2 (09:30→11:00)
--- NOTE | 2022-09-15 09:42 | NUR ---
RN notes seen by ST and recommends NPO and NGT due to inability to swallow. Dr. Roldan notified with new order for dietary consult and NGT
--- NOTE | 2022-09-15 10:20 | NUR ---
RN NOTES DR. JAMA INFORMED US THAT PT'S RP PATITO () WANTED TO HAVE GT INSTEAD OF NGT
--- NOTE | 2022-09-15 10:46 | NUR ---
TURRET PRESS OPERATOR NOTES New order from Dr. Roldan to start PT on D5 1/2 NS @ 75cc/hr pending GT placement.
[2022-09-15] MEDS ORDERED: MORPHINE SULFATE INJ 2 MG/ML DISP.SYRIN IV PRN (13:30)
[2022-09-15 16:00] VITALS: BP 101/75
--- NOTE | 2022-09-15 18:30 | NUR ---
RN CLOSING NOTE PATIENT ON BED; AWAKE, ALERT AND ORIENTED X 3-4. ON ROOM AIR; TOLERATING WELL. BREATHING EVEN AND NONLABORED. DENIES ANY PAIN AT THIS TIMES. WITH IV ACCESS ON RFA 18g AND LFA 18g; PATENT, INTACT AND SALINE LOCK. WITH D5 0.45 NS RUNNING AT 75CC/HR. SAFETY PRECAUTIONS MAINTAINED. NPO MAINTAINED. HEAD OF BED ELEVATED AT ALL TIMES, CALL LIGHT AND TABLE WITHIN REACH, SIDE RAILS UP X 3, BED IN LOWEST LOCKED POSITION. ENDORSED TO INCOMING NURSE FOR CONTINUITY OF CARE.
[2022-09-15 20:00] VITALS: BP 142/91
[2022-09-15] MEDS: ATORVASTATIN 40 MG TABLET PO SCH (20:01)
[2022-09-16 04:00] VITALS: BP 126/65
--- NOTE | 2022-09-16 05:54 | NUR ---
END OF SHIFT REPORT Patient in bed, Alert Oriented x1-2. Oxygen sat high 90's in RA. Failed swallow study, Patient NPO, IVF infused as one time ordered 09/15/22. IV Right wrist intact. NIH stroke QS, left sided weakness, Dysarthria, score of 5. FUR MACHINE OPERATOR/Neuro Laura aware as previous score. Patient denies pain, no c/o N/V. Voided urine with Purewick device 500ml rodrigo cloudy. No BM during the night. BLE wounds, dressing C/D/I. Turned and repositioned q 2h. Off load heels at all times. Plan for PEG placement, consent in the chart. Will endorse to oncoming RN.
--- NOTE | 2022-09-16 07:09 | NUR ---
DITCH REPAIRER NOTES Received pt awake in bed AOx3. No complaints of pain or discomfort at this time. Pt has left sided weakness. Currently on room air and tolerating it well. IV access on Right wrist 22G patent and intact. HOB elevated to 30-45 degrees. Siderails up at all times x3. Call light within reach. Will continue to monitor.
[2022-09-16 07:22] LABS: CALCIUM, SERUM 8.7 mg/dL (8.5-10.1); CARBON DIOXIDE 25 mmol/L (21-32); CHLORIDE 110 mmol/L (98-107); CREATININE 0.5 mg/dL (0.6-1.3); GLUCOSE 117 mg/dL (74-106); MAGNESIUM 2.2 mg/dL (1.8-2.4); PHOSPHORUS 2.7 mg/dL (2.5-4.9); SODIUM SERUM 145 mmol/L (136-145); UREA NITROGEN, BLOOD 14 mg/dL (7-18)
[2022-09-16 07:27] LABS: POTASSIUM 2.8 mmol/L (3.5-5.1)
--- NOTE | 2022-09-16 07:28 | NUR ---
CURB MACHINE OPERATOR NOTES Lab called to relay critical lab value of 2.8. made aware.
[2022-09-16 07:31] LABS: BASOPHILS % (AUTO) 0.2 % (0.0-2.0); EOSINOPHILS % (AUTO) 0.1 % (0.0-6.0); HEMATOCRIT 32 % (33-45); HEMOGLOBIN 10.6 g/dL (11.5-14.8); MEAN CORPUSCULAR HGB CONC 33 g/dl (31.0-36.0); MEAN CORPUSCULAR VOLUME 100 fL (82-100); MONOCYTES # (AUTO) 1.4 K/uL (0.1-1.30); MONOCYTES % (AUTO) 9.9 % (2.0-12.0); NEUTROPHILS # (AUTO) 11.5 K/uL (1.8-8.9); NEUTROPHILS % (AUTO) 82.8 % (43.0-81.0); PLATELET COUNT (AUTO) 218 K/uL (150-450); RED BLOOD CELL COUNT(AUTO) 3.24 MIL/uL (4.0-5.2); WHITE BLOOD COUNT (AUTO) 13.9 K/uL (4.3-11.0)
[2022-09-16 08:00] VITALS: BP 145/72
[2022-09-16] MEDS: ENOXAPARIN SODIUM 40 MG/0.4 ML DISP.SYRIN SQ SCH (08:09)
[2022-09-16] MEDS: CLOPIDOGREL BISULFATE 75 MG TABLET PO SCH (08:10)
[2022-09-16] MEDS: GENTAMICIN 0.1% OINT 15 GM TUBE TP SCH ×2 (08:10→16:00)
[2022-09-16] MEDS: Z GUARD REMEDY 4 OZ OINT TP SCH (08:10)
[2022-09-16] MEDS: ASPIRIN 81 MG TAB.CHEW PO SCH (08:10)
[2022-09-16] MEDS ORDERED: POTASSIUM CHLORIDE 10 MEQ/50 ML PREMIXED IVPB FOR PERIPHERAL LINE IV ONE (09:30)
--- NOTE | 2022-09-16 09:30 | NUR ---
PRINT WASHER NOTES New order from Dr. Patel to give pt 80 MEQ of potassium.
--- NOTE | 2022-09-16 10:00 | NUR ---
CARTON LINER NOTES Called pharmacy to verify dose. Pharmacy clarified that it should be 10 MEQ (1bag) of Potassium to be hung every hour via IV until desired dose of 80 MEQ is reached.
--- NOTE | 2022-09-16 11:42 | NUR ---
RAW HIDE TRIMMER NOTES Pt taken to surgery for GTube placement.
--- NOTE | 2022-09-16 13:00 | NUR ---
COIL STRAPPER NOTRS Pt returned from GT placement and tolerated it well. Pt opens eyes when name is called upon and able to follow instructions. New orders from MD to resume previous meds, water and meds in 4 hours, start tube feeding tomorrow morning. Noted and carried out.
[2022-09-16] MEDS: IV D5/0.45 NACL 1,000 ML IV SCH ×2 (14:05→23:29)
[2022-09-16 16:00] VITALS: BP 136/69
--- NOTE | 2022-09-16 18:24 | NUR ---
AUTO BODY MECHANIC CLOSING NOTES All due meds and tx given as ordered. Pt tolerated everything well. All needs attended to. Pt is currently on RA and tolerating it well. IV access on right wrist 20G patent and intact running IVF D5 1/2 NS @ 100cc/HR. GT is patent and intact. GTF to run tomorrow morning. Call light within reach. Will endorse to oncoming nurse.
--- NOTE | 2022-09-16 19:30 | NUR ---
MS RN OPENING NOTES RECEIVED PATIENT IN BED SLEEPING. A/O X1-2. IV ACCESS ON LEFT WRIST G#20 INFUSING D5 @100CC/HR. IV SITE NOTED TO BE FLUSHING WELL AND INTACT. PATIENT IS S/P G-TUBE PLACEMENT TODAY. G-TUBE IS NOTED TO BE CLEAN AND INTACT. NO SIGNS OF BLEEDING NOTED. PATIENT NO SOB, NOT IN ANY DISTRESS. NO COMPLAINS OF PAIN AT THIS TIME. SAFETY MEASURE IN PLACED; BED LOCKED AND IN LOWEST POSITION. HOB ELEVATED, SIDE RAILS UP X2, CALL LIGHT AND BED SIDE TABLE WITHIN PATIENTS REACH.
[2022-09-16] MEDS: ATORVASTATIN 40 MG TABLET PO SCH (21:05)
[2022-09-17] VITALS: BP 130/89
--- NOTE | 2022-09-17 04:41 | NUR ---
RN NOTES WOUND CARE IS DONE. PATIENT IS REPOSITIONED EVERY 2 HOURS THROUGH OUT THE SHIFT. NO COMPLAINS OF PAIN AT THE MOMENT. GTUBE DRESSING AND BINDER CHECKED; NOTED TO BE DRY, CLEAN AND INTACT.
--- NOTE | 2022-09-17 06:35 | NUR ---
MS RN CLOSING NOTES PATIENT IN BED SLEEPING. A/O X1-2. EASILY AWAKEN WHEN CALLED BY NAME. IV ACCESS ON LEFT WRIST G#20 INFUSING D5 1/2NS @100CC/HR. IV SITE NOTED TO BE FLUSHING WELL AND INTACT. PATIENT IS S/P G-TUBE PLACEMENT. G-TUBE IS NOTED TO BE CLEAN AND INTACT. NO SIGNS OF BLEEDING NOTED. PATIENT NO SOB, NOT IN ANY DISTRESS. NO COMPLAINS OF PAIN AT THIS TIME. PATIENT ON ROOM AIR TOLERATING WELL O2 SATURATION 98%. ALL DUE MEDICATIONS ARE GIVEN. MADE SURE PATIENT IS CLEAN AND DRY, PATIENT IS COMFORTABLE. NO COMPLAIN OF PAIN AT THIS MOMENT. ALL NEEDS ARE MET. SAFETY MEASURE IN PLACED; BED LOCKED AND IN LOWEST POSITION. HOB ELEVATED, SIDE RAILS UP X2, CALL LIGHT AND BED SIDE TABLE WITHIN PATIENTS REACH. WILL ENDORSE TO NEXT SHIFT FOR CONTINUITY OF CARE.
[2022-09-17 08:00] VITALS: BP 134/77
[2022-09-17 08:39] LABS: CALCIUM, SERUM 8.7 mg/dL (8.5-10.1); CARBON DIOXIDE 27 mmol/L (21-32); CHLORIDE 108 mmol/L (98-107); CREATININE 0.5 mg/dL (0.6-1.3); GLUCOSE 116 mg/dL (74-106); MAGNESIUM 2.1 mg/dL (1.8-2.4); PHOSPHORUS 2.6 mg/dL (2.5-4.9); POTASSIUM 3.2 mmol/L (3.5-5.1); SODIUM SERUM 145 mmol/L (136-145); UREA NITROGEN, BLOOD 12 mg/dL (7-18)
[2022-09-17] MEDS: ASPIRIN 81 MG TAB.CHEW PO SCH (08:40)
[2022-09-17] MEDS: CLOPIDOGREL BISULFATE 75 MG TABLET PO SCH (08:40)
[2022-09-17] MEDS: Z GUARD REMEDY 4 OZ OINT TP SCH (08:41)
[2022-09-17] MEDS: ENOXAPARIN SODIUM 40 MG/0.4 ML DISP.SYRIN SQ SCH (08:41)
[2022-09-17] MEDS: GENTAMICIN 0.1% OINT 15 GM TUBE TP SCH ×2 (08:41→16:28)
[2022-09-17 08:52] LABS: BASOPHILS % (AUTO) 0.1 % (0.0-2.0); EOSINOPHILS % (AUTO) 0.1 % (0.0-6.0); HEMATOCRIT 32 % (33-45); HEMOGLOBIN 10.6 g/dL (11.5-14.8); LYMPHOCYTES # (AUTO) 1.2 K/uL (0.8-4.8); LYMPHOCYTES % (AUTO) 8.7 % (20.0-44.0); MEAN CORPUSCULAR HGB CONC 33 g/dl (31.0-36.0); MEAN CORPUSCULAR VOLUME 99 fL (82-100); NEUTROPHILS # (AUTO) 11.8 K/uL (1.8-8.9); NEUTROPHILS % (AUTO) 84.1 % (43.0-81.0); PLATELET COUNT (AUTO) 241 K/uL (150-450); RED BLOOD CELL COUNT(AUTO) 3.28 MIL/uL (4.0-5.2); WHITE BLOOD COUNT (AUTO) 14.1 K/uL (4.3-11.0)
[2022-09-17] MEDS: JEVITY 1.2 CAL 1,000 ML BOTTLE GT PRN (08:55)
[2022-09-17] MEDS: POTASSIUM CL. PREMIX PERIPHER. 50 ML IV SCH ×4 (09:57→13:06)
[2022-09-17] MEDS: IV D5/0.45 NACL 1,000 ML IV SCH ×2 (10:28→18:00)
--- NOTE | 2022-09-17 15:21 | NUR ---
OPENING NOTE; RECEIVED PATIENT IN BED ASLEEP BUT AROUSABLE, NO SIGNS OF IN DISTRESS, UNLABORED BREATHING NOTED, NO COMPLAINT OF PAIN, SAFETY MEASURES APPLIED, BED IN LOW POSITION LOCKED, SIDE RAILS UPX3, CALL LIGHT WITHIN REACH.
[2022-09-17 16:00] VITALS: BP 135/86
--- NOTE | 2022-09-17 18:54 | NUR ---
PATIENT IS AWAKE RESTING IN BED COMFORTABLY, AROUSABLE, NO SIGNS OF IN DISTRESS, NO COMPLAINT OF PAIN, FEEDING AT 65CC/HR INFUSING WELL WITH NO COMPLAINT OF ABDOMINAL PAIN, ABLE TO REACH THE GOAL OF 65CC/HR. UNLABORED BREATHING ON ROOM AIR, SAFETY MEASURES APPLIED, BED IN LOW POSITION LOCKED, SIDE RAILS UPX3, CALL LIGHT WITHIN REACH.
--- NOTE | 2022-09-17 19:30 | NUR ---
MS RN OPENING NOTES RECEIVED PT RESTING IN BED COMFORTABLY, AROUSABLE. A/O X2-3. ON RA WITH NO SIGNS OF SOB OR DISTRESS. DENIES PAIN AT THIS TIME. TUBE FEEDING AT 65CC/HR INFUSING WELL WITH NO COMPLAINT OF ABDOMINAL PAIN. IV ACCESS R WRIST #20G, PATENT, INTACT, FLUSHING WELL, RUNNING D5 1/2 NS @ 100 ML/HR. SAFETY MEASURES IN PLACE: BED IN LOW POSITION LOCKED, SIDE RAILS UPX3, BED ALARM ON, CALL LIGHT WITHIN REACH. WILL CONTINUE TO MONITOR AND ASSIST.
[2022-09-17] MEDS: ATORVASTATIN 40 MG TABLET PO SCH (22:19)
[2022-09-18] VITALS: BP 148/63
[2022-09-18 04:00] VITALS: BP 127/73
[2022-09-18] MEDS: IV D5/0.45 NACL 1,000 ML IV SCH ×2 (05:10→15:25)
--- NOTE | 2022-09-18 06:50 | NUR ---
MS RN CLOSING NOTES PT SLEEPING IN BED, AROUSABLE. A/O X2-3. STABLE ON RA WITH NO SIGNS OF SOB OR DISTRESS. DENIES PAIN AT THIS TIME. TUBE FEEDING AT 65CC/HR INFUSING WELL WITH NO COMPLAINT OF ABDOMINAL PAIN. IV ACCESS R WRIST #20G, PATENT, INTACT, FLUSHING WELL, RUNNING D5 1/2 NS @ 100 ML/HR. ALL CARE PROVIDED AND MEDS TOLERATED WELL. SAFETY MEASURES MAINTAINED: BED IN LOW POSITION LOCKED, SIDE RAILS UPX3, BED ALARM ON, CALL LIGHT WITHIN REACH. WILL ENDORSE ERWIN TO DAY SHIFT NURSE. Addendum: 09/18/22 at 0651 by LELO COOPER RN CONNECTED TO [place], DRAINED TOTAL OF 350 ML CLOUDY, GET URINE DURING SHIFT.
--- NOTE | 2022-09-18 07:33 | NUR ---
MS RN OPENING NOTE RECEIVED PT RESTING IN BED COMFORTABLY, AROUSABLE. A/O X2-3. ON RA WITH NO SIGNS OF SOB OR DISTRESS AT THIS TIME.PT ON GTUBE. NO RESIDUAL VOLUME NOTED. TUBE FEEDING AT 65CC/HR IV ACCESS R WRIST #20G, PATENT, INTACT, FLUSHING WELL, RUNNING D5 1/2 NS @ 100 ML/HR.ALL SAFETY MEASURES IN PLACE: BED IN LOW POSITION LOCKED, SIDE RAILS UPX3, BED ALARM ON, CALL LIGHT WITHIN REACH.
[2022-09-18 08:00] VITALS: BP 141/55
[2022-09-18] MEDS: CLOPIDOGREL BISULFATE 75 MG TABLET PO SCH (08:59)
[2022-09-18] MEDS: ASPIRIN 81 MG TAB.CHEW PO SCH (08:59)
[2022-09-18] MEDS: ENOXAPARIN SODIUM 40 MG/0.4 ML DISP.SYRIN SQ SCH (09:00)
--- NOTE | 2022-09-18 10:00 | NUR ---
RN NOTE PT NOT FOLLOWING COMMANDS. NIHSS 12.
[2022-09-18] MEDS: Z GUARD REMEDY 4 OZ OINT TP SCH (11:44)
--- NOTE | 2022-09-18 12:00 | NUR ---
RN NOTE ROUNDS MADE WITH SILK WEAVER AND MANAGER NC. PT IS MORE COOPERATIVE, NIHSS SCORE 6
[2022-09-18] MEDS: JEVITY 1.2 CAL 1,000 ML BOTTLE GT PRN (13:44)
[2022-09-18] MEDS: GENTAMICIN 0.1% OINT 15 GM TUBE TP SCH ×2 (15:19→18:28)
[2022-09-18 16:00] VITALS: BP 156/89
--- NOTE | 2022-09-18 16:12 | NUR ---
rn note gave report to Tita Moralez at [facility]
--- NOTE | 2022-09-18 19:30 | NUR ---
MS RN OPENING NOTE PT RESTING IN BED COMFORTABLY. PT ALERT AND ORIENTED X2-3. PT ON ROOM AIR WITH O2 96%. NO SIGNS OF PAIN OR DISCOMFORT NOTED AT THIS TIME. PT ON GTUBE FEEDING. NO RESIDUAL VOLUME BNOTED. PT HAS IV ON R WRIST 20 GAUGE. IV INTACT, PATENT AND FLUSHING WELL. PUREWICK IN PLACE DRAINING YELLOW/GET COLOR URINE DRAINING TO GRAVITY. ALL SAFETY MEASURES IN PLACE. CALL LIGHT WITHIN REACH. BED LOCKED AT LOWEST POSITION. SIDE RAILS UP X2.BED ALARM ON. PENDING DISCHARGE. ENDORSED TO CHAIRMAN & CEO RN NURSE Addendum: 09/18/22 at 1930 by RON PEREZ RN MS CLOSING NOTE
--- NOTE | 2022-09-18 19:42 | NUR ---
MS SY OPENING NOTES - RECEIVED PATIENT SLEEPING, EASY TO AROUSE. LETHARGIC. BREATHING EVEN AND NON-LABORED ON ROOM AIR. NOT IN ACUTE DISTRESS. NO C/O PAIN OR DISCOMFORT AT THIS TIME. HAS RIGHT WRIST IV ACCESS #20G WITH D5 1/2NS RUNNING AT 100 ML/HR. NO S/S OF INFILTRATION NOTED. HAS PUREWICK CONNECTED TO CONTINUOUS SUCTION DRAINING CLEAR GET URINE. SAFETY PRECAUTIONS IN PLACE: BED LOCKED AND IN LOW POSITION, SIDE RAILS UP X3, CALL LIGHT WITHIN REACH. WILL CONTINUE PLAN OF CARE. Addendum: 09/18/22 at 2025 by November THA SY HAS G-TUBE WITH JEVITY RUNNING AT 50 ML/HR.
[2022-09-18 20:00] VITALS: BP 137/88
--- NOTE | 2022-09-18 20:38 | NUR ---
MS FLOOR RUNNER NOTES - PATIENT RESTING IN BED, ABLE TO VERBALIZE NEEDS. NO SOB OR NOTED. NOT IN CARDIAC OR RESPIRATORY DISTRESS. LEFT SIDED WEAKNESS STILL NOTED. VITAL SIGNS WNL. REMOVED RIGHT WRIST IV ACCESS AND PUREWICK. BILATERAL LEG WOUND DRESSING C/D/I. DISCONNECTED G-TUBE FROM FEEDING. 2 MALE CHILD CARE EDUCATION COORDINATOR TRANSPORTED THE PATIENT AT 2023 VIA [facility] IN STABLE CONDITION.
[2022-09-19] MEDS ORDERED: PROSOURCE / PROSTAT (PYXIS) 30 ML UDC GT SCH (09:00)
== END 2022-09-18 20:24 | DRG 64 ==
LOC: ER 02:26 → TELE1 04:02 → MEDSG1 09-14 10:58
PROVIDERS: ADMIT Internal Medicine; ATTEND Internal Medicine
PROC: 0DH63UZ Insertion of Feeding Device into Stomach, Percutaneous Approach (ICD-10-PCS; principal; 2022-09-16)
DX: I63.9 Cerebral infarction, unspecified (principal); G93.41 Metabolic encephalopathy; I61.8 Other nontraumatic intracerebral hemorrhage; G81.94 Hemiplegia, unspecified affecting left nondominant side; L97.829 Non-pressure chronic ulcer of other part of left lower leg with unspecified severity; L97.819 Non-pressure chronic ulcer of other part of right lower leg with unspecified severity; Z20.822 Contact with and (suspected) exposure to COVID-19; L97.529 Non-pressure chronic ulcer of other part of left foot with unspecified severity; L97.519 Non-pressure chronic ulcer of other part of right foot with unspecified severity; R29.810 Facial weakness; I10 Essential (primary) hypertension; E03.9 Hypothyroidism, unspecified; E78.5 Hyperlipidemia, unspecified; E87.6 Hypokalemia; Z86.73 Personal history of transient ischemic attack (TIA), and cerebral infarction without residual deficits; I67.2 Cerebral atherosclerosis; F03.90 Unspecified dementia, unspecified severity, without behavioral disturbance, psychotic disturbance, mood disturbance, and anxiety; R13.10 Dysphagia, unspecified; R29.702 NIHSS score 2; B35.1 Tinea unguium
CPT/HCPCS: 36415; 43246; 70450-TC; 70496-TC; 70498-TC; 70551-TC; 71045-TC; 80048-TC; 80053-TC; 80061-TC; 80076-TC; 82962-TC; 83735-TC; 83880; 84100-TC; 84439-TC; 84443-TC; 84484-TC; 85025-TC; 85652-TC; 85730-TC; 87081-TC; 92507-TC; 92521; 92526; 92611-TC; 93307-TC; 97110-TC; 97112-TC; 97530-TC; A4223; A6253; A6403; C9803; G0378; J1644; J1650; J2270; J2704; J3480; J3490; J7030; J7042; J7050; J7070